=== PATIENT | female | born 2000 | race Caucasian/White ===

== ENCOUNTER 2022-02-24 12:10 | Inpatient (IN) | payer MEDICAID, OTHER ==
[~2022-02-24] VITALS: Ht 165.1 cm; Wt 80.9 kg
[2022-02-24 13:21] LABS: HEMATOCRIT 48.7 % (36.0-47.0); HEMOGLOBIN 15.8 g/dl (12.0-15.5); MEAN CORPUSCULAR HEMOGLOBIN 29.4 pg (27.0-33.0); MEAN CORPUSCULAR HGB CONC 32.4 g/dl (32.0-36.5); MEAN CORPUSCULAR VOLUME 90.5 fl (80.0-96.0); PLATELET COUNT, AUTOMATED 304 10^3/uL (150-450); RED BLOOD COUNT 5.38 10^6/uL (4.00-5.40); WHITE BLOOD COUNT 10.3 10^3/uL (4.0-10.0)
[2022-02-24 13:36] LABS: HCG, SERUM QUALITATIVE NEGATIVE (NEGATIVE)
[2022-02-24 13:42] LABS: AMPHETAMINES LEVEL URINE NEGATIVE (NEGATIVE); BARBITURATES URINE NEGATIVE (NEGATIVE); BENZODIAZEPINES URINE NEGATIVE (NEGATIVE); CANNABINOIDS URINE POSITIVE (NEGATIVE); COCAINE METABOLITE URINE NEGATIVE (NEGATIVE); METHADONE URINE NEGATIVE (NEGATIVE); OPIATES URINE NEGATIVE (NEGATIVE); PHENCYCLIDINE URINE NEGATIVE (NEGATIVE)
[2022-02-24 13:54] LABS: ACETAMINOPHEN LEVEL < 2.0 UG/ML (10.0-30.0); ALBUMIN 4.4 GM/DL (3.2-5.2); ALT/SGPT 16 U/L (12-78); BILIRUBIN,DIRECT 0.1 MG/DL (0.0-0.2); BILIRUBIN,TOTAL 0.5 MG/DL (0.2-1.0); BLOOD UREA NITROGEN 17 MG/DL (7-18); CALCIUM LEVEL 9.6 MG/DL (8.5-10.1); CARBON DIOXIDE LEVEL 27 MEQ/L (21-32); CHLORIDE LEVEL 105 MEQ/L (98-107); CREATININE FOR GFR 1.06 MG/DL (0.55-1.30); ETHYL ALCOHOL (ETHANOL) < 0.003 % (0.000-0.010); GLUCOSE, FASTING 97 MG/DL (70-100); POTASSIUM SERUM 4.2 MEQ/L (3.5-5.1); SALICYLATE LEVEL 1.7 MG/DL (5.0-30.0); SODIUM LEVEL 140 MEQ/L (136-145); TOTAL PROTEIN 7.9 GM/DL (6.4-8.2)
[2022-02-24 15:02] LABS: RSV AMPLIFICATION NEGATIVE (NEGATIVE)
[2022-02-24] MEDS ORDERED: ARIP1TAB4 PO (17:27)
[2022-02-24] MEDS ORDERED: TOPI50TA9 PO (17:27)
[2022-02-24] MEDS ORDERED: HOME MED LIST COMPLETE! XX SCH (17:30)
[2022-02-25] MEDS ORDERED: TOPIRAMATE (TopAMAX) 25 MG TAB PO ONE (07:30)
[2022-02-25] MEDS ORDERED: ARIPiprazole 2 MG TAB PO ONE (07:30)
[2022-02-25] MEDS ORDERED: TOPIRAMATE (TopAMAX) 25 MG TAB PO SCH (09:00)
[2022-02-25] MEDS ORDERED: ARIPiprazole 2 MG TAB PO SCH (09:00)
[2022-02-25] MEDS ORDERED: ACETAMINOPHEN TAB 650MG DOSE (2X325MG) PO PRN ×2 (18:50→20:05)
[2022-02-25] MEDS ORDERED: OLANZapine ORAL DISINTEGRATING TAB 5MG PO PRN (20:05)
[2022-02-25] MEDS ORDERED: MAALOX 30 ML SUSP *UDC PO PRN (20:05)
[2022-02-25] MEDS ORDERED: MOM 30ML SUSPENSION UDC PO PRN (20:05)
[2022-02-25 21:38] VITALS: BP 118/76
[2022-02-25] MEDS: traZODone 50 MG TAB PO PRN (23:05)
[2022-02-26 07:00] VITALS: BP 130/78
[2022-02-26] MEDS: TOPIRAMATE (TopAMAX) 25 MG TAB PO SCH (09:21)
[2022-02-26] MEDS: ARIPiprazole 2 MG TAB PO SCH (09:21)
[2022-02-26] MEDS: NICOTINE 21MG/24HR 1 EA TRANSDERMAL TD SCH (14:53)
[2022-02-26] MEDS: LevoFLOXacin 750 MG TABLET PO SCH (14:54)
[2022-02-26 18:13] VITALS: BP 139/89
[2022-02-26] MEDS: traZODone 50 MG TAB PO PRN (21:26)
[2022-02-27] MEDS: LevoFLOXacin 750 MG TABLET PO SCH (05:12)
[2022-02-27 06:06] VITALS: BP 118/72
[2022-02-27] MEDS: NICOTINE 21MG/24HR 1 EA TRANSDERMAL TD SCH (09:00)
[2022-02-27] MEDS ORDERED: TOPI50TA9 PO (09:04)
[2022-02-27] MEDS ORDERED: ARIP1TAB4 PO (09:04)
[2022-02-27] MEDS: ARIPiprazole 2 MG TAB PO SCH (09:41)
[2022-02-27] MEDS: TOPIRAMATE (TopAMAX) 25 MG TAB PO SCH (09:41)
== END 2022-02-27 10:48 | disposition home or self-care (01) | DRG 753 ==
LOC: M ED 12:10 → M ED INP 02-25 20:04 → M PSY 02-25 21:08
PROVIDERS: ADMIT Psychiatry & Neurology Psychiatry; ATTEND Psychiatry & Neurology Psychiatry
DX: F31.81 Bipolar II disorder (principal); F17.200 Nicotine dependence, unspecified, uncomplicated; F12.90 Cannabis use, unspecified, uncomplicated; Z91.14 Patient's other noncompliance with medication regimen; F41.9 Anxiety disorder, unspecified; Z62.810 Personal history of physical and sexual abuse in childhood; N39.0 Urinary tract infection, site not specified; Z79.899 Other long term (current) drug therapy